=== PATIENT | female | born 1980 | race Caucasian/White ===

== ENCOUNTER 2018-07-29 21:05 | Emergency (ER) | payer OTHER ==
[2018-07-29 21:16] VITALS: BP 153/99
--- NOTE | 2018-07-29 21:26 | UC ---
Throat Pain/Nasal Butch HPI - HPI Summary HPI Summary: 38-year-old woman comes to clinic today with a chief complaint of rhinorrhea sinus pressure or sore throat for 1 week. Patient's been using an antibiotic which does help but then the sinus pressure returns. There is some color to the rhinorrhea. No cough or chest congestion. No recent fevers. Patient has postnasal drip has a sore throat. - History of Current Complaint Chief Complaint: UCGeneralIllness Stated Complaint: CONGESTED Time Seen by Provider: 07/29/18 21:17 Hx Last Menstrual Period: hysterectomy Pain Intensity: 3 - Allergies/Home Medications Allergies/Adverse Reactions: Allergies Allergy/AdvReac Type Severity Reaction Status Date / Time Adhesive Tape Allergy Intermediate Hives Verified 05/24/15 09:25 acetaminophen [From [place]] Allergy GI Upset Verified 07/29/18 21:20 hydrocodone [From [place]] Allergy GI Upset Verified 07/29/18 21:20 ketorolac [From Torad[place]] Allergy GI Upset Verified 07/29/18 21:21 oxycodone Allergy Unknown Verified 07/29/18 21:22 Reaction Details Penicillins Allergy Anaphylatic Verified 07/29/18 21:22 Shock tapentadol [From [place]] Allergy Hallucinati Verified 07/29/18 21:23 ons tramadol Allergy GI Upset Verified 07/29/18 21:21 TYLENOL WITH CODEINE AdvReac Intermediate GI Upset Uncoded 05/24/15 09:25 Home Medications: Home Medications Ibuprofen TAB* [Motrin TAB* 600 MG] 07/29/18 [History] guaiFENesin [Mucinex] 07/29/18 [History] PMH/Surg Hx/FS Hx/Imm Hx Previously Healthy: Yes Other GI/ History: ulcerative colitis - Surgical History Surgical History: Yes Surgery Procedure, Year, and Place: 2010 AND 2011, 2 FASCIOTOMIES- BOTH LEGS- [id number] RIGHT WRIST GANGLION REMOVED, [facility] [place] 2000 RIGHT CARPAL TUNNEL RELEASE, [facility] 2006 EXCISION OF TUMOR RIGHT SIDE OF NECK, [id number] LAPAROSCOPIC CHOLECYSTECTOMY, [facility] [place] 1999 BILATERAL TUBAL LIGATION, [facility] 2003 DILATION AND CURETTAGE, [facility] [place] 2003 HYSTERECTOMY, [facility] [place] 2006 SINUS SURGERY- REMOVAL OF TUMOR, [facility] [place] 2008 2 CARDIAC ABLATIONS- [facility] 2011EXCISION OF CYST RIGHT THUMB, WITH BONE REMOVAL, 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 Review of Systems All Other Systems Reviewed And Are Negative: Yes Constitutional: Positive: Negative Skin: Positive: Negative Eyes: Positive: Negative ENT: Positive: Sore Throat, Nasal Discharge, Sinus Congestion, Sinus Pain/ Tenderness Respiratory: Positive: Negative Cardiovascular: Positive: Negative Gastrointestinal: Positive: Negative Motor: Positive: Negative Neurovascular: Positive: Negative Musculoskeletal: Positive: Negative Neurological: Positive: Negative Psychological: Positive: Negative Is Patient Immunocompromised?: No Physical Exam Triage Information Reviewed: Yes Appearance: No Pain Distress, Well-Nourished, Ill-Appearing - mild Vital Signs: Initial Vital Signs Temp 98.3 F 07/29/18 21:10 Pulse 112 07/29/18 21:10 Resp 18 07/29/18 21:10 BP 153/99 07/29/18 21:10 Pulse Ox 100 07/29/18 21:10 Vital Signs Reviewed: Yes Eye Exam: Normal Eyes: Positive: Conjunctiva Clear ENT: Positive: Pharyngeal erythema, Nasal congestion, Nasal drainage, TMs normal Neck exam: Normal Neck: Positive: Supple Respiratory: Positive: Lungs clear, Normal breath sounds, No respiratory distress Cardiovascular: Positive: Tachycardia Musculoskeletal Exam: Normal Musculoskeletal: Positive: Strength Intact, ROM Intact Neurological Exam: Normal Neurological: Positive: Alert, Muscle Tone Normal Psychological Exam: Normal Psychological: Positive: Age Appropriate Behavior Skin Exam: Normal Throat Pain/Nasal Course/Dx - Course Course Of Treatment: DISCUSSED VIRAL VERSES BACTERIAL INFECTION AND THE ROLE OF ANTIBIOTICS. THE PATIENT WISHES TO BE ON ANTIBIOTIC AT THIS TIME. - Differential Dx/Diagnosis Provider Diagnosis: Sinusitis Discharge - Sign-Out/Discharge Documenting (check all that apply): Patient Departure All imaging exams completed and their final reports reviewed: No Studies - Discharge Plan Condition: Stable Disposition: HOME Prescriptions: Azithromycin 250 mg PO DAILY #4 tablet Patient Education Materials: Sinusitis (ED) Referrals: Alice Elliott [Primary Care Provider] - Additional Instructions: FOLLOW UP WITH YOUR DOCTOR IF NOT COMPLETELY IMPROVED. GET RECHECKED FOR ANY WORSENING OF YOUR CONDITION OR QUESTIONS OR CONCERNS. - Billing Disposition and Condition Condition: STABLE Disposition: Home
[2018-07-29] MEDS ORDERED: Azithromycin TAB* 250 MG PO ONE (21:27)
== END 2018-07-29 21:34 | disposition home or self-care (01) ==
LOC: UCEAST 21:05
DX: J32.9 Chronic sinusitis, unspecified (principal); Z88.5 Allergy status to narcotic agent; Z88.6 Allergy status to analgesic agent; Z88.0 Allergy status to penicillin; Z88.8 Allergy status to other drugs, medicaments and biological substances; Z91.048 Other nonmedicinal substance allergy status; Z87.891 Personal history of nicotine dependence
CPT/HCPCS: 99201; A9270-GY; G0463